=== PATIENT | female | born 1990 | race American Indian/Alaskan Native ===

== ENCOUNTER 2018-10-21 10:05 | Emergency (ER) | payer MEDICAID, OTHER ==
[2018-10-21 10:53] LABS: Hematocrit 39.1 % (30.3-42.9); Hemoglobin 13.2 gm/dl (10.1-14.3); Mean Corpuscular HGB Conc 34 % (30-34); Mean Corpuscular Volume 84 fl (79-97); Mean Platelet Volume 8.4 fl (6-12); Platelet Count 320 K/mm3 (140-440); Red Blood Count 4.63 M/mm3 (3.65-5.03); Red Cell Distribution Width 17.2 % (13.2-15.2)
[2018-10-21 10:54] LABS: Basophils % (Auto) 0.4 % (0.0-1.8); Eosinophils % (Auto) 0.1 % (0.0-4.3); Lymphocytes # (Auto) 1.7 K/mm3 (1.2-5.4); Lymphocytes % (Auto) 23.7 % (13.4-35.0); Monocytes # (Auto) 0.7 K/mm3 (0.0-0.8); Monocytes % (Auto) 9.4 % (0.0-7.3)
[2018-10-21 11:01] LABS: BUN/Creatinine Ratio 9; Blood Urea Nitrogen 9 mg/dL (7-17); Calcium 8.7 mg/dL (8.4-10.2); Hemolysis Index 47
[2018-10-21] MEDS ORDERED: TORADOL IM STA (11:04)
[2018-10-21 11:41] LABS: Bilirubin,Urine NEG (Negative); Blood,Urine NEG (Negative); Color,Urine Yellow (Yellow); Mucus,Urine FEW /HPF; Urobilinogen,Urine < 2.0 mg/dL (<2.0)
[2018-10-21 11:47] LABS: HCG Qualitative,Urine Negative (Negative)
[2018-10-21 14:45] VITALS: BP 134/88
--- NOTE | 2018-10-21 15:49 | Emergency Department Report ---
ED General Adult HPI - General Chief complaint: Neck Pain/Injury Stated complaint: NECK PAIN/CHILLS Time Seen by Provider: 10/21/18 10:56 Source: patient Mode of arrival: Ambulatory Limitations: No Limitations - History of Present Illness Initial comments: 28-year-old female since was brought complaining of itchy medical has been present for the last day and half to 2 days. States she will vocal with bilateral neck tightness and pain which is worse with lateral flexion and ex similarity range of motion. No pain with flexion or extension. She denies any headache reports no fever, chills, sweats. No nausea, vomiting, no blurred vision. No chest pain or palpitations. States that her pain is a 9 to a 10 out of 10. -: Gradual Location: neck Radiation: non-radiation Severity scale (0 -10): 9 Quality: aching, dull Consistency: constant Improves with: none Worsens with: none Associated Symptoms: denies other symptoms Treatments Prior to Arrival: none - Related Data Previous Rx's Medication Instructions Recorded Last Taken Type HYDROcodone/APAP 5-325 [[place] 1 each PO Q6HR PRN #10 tablet 10/13/13 Unknown Rx 5/325] Ketorolac [Toradol] 10 mg PO Q6H PRN #15 tablet 10/21/18 Unknown Rx methOCARBAMOL [Robaxin TAB] 750 mg PO Q8H PRN #14 tablet 10/21/18 Unknown Rx Allergies Allergy/AdvReac Type Severity Reaction Status Date / Time No Known Allergies Allergy Unverified 10/13/13 18:41 ED Review of Systems ROS: Stated complaint: NECK PAIN/CHILLS Other details as noted in HPI Comment: All other systems reviewed and negative ED Past Medical Hx - Past Medical History Previous Medical History?: No - Surgical History Past Surgical History?: No - Social History Smoking Status: Never Smoker Substance Use Type: None - Medications Home Medications: Home Medications Medication Instructions Recorded Confirmed Last Taken Type HYDROcodone/APAP 5-325 [[place] 1 each PO Q6HR PRN #10 tablet 10/13/13 Unknown Rx 5/325] Ketorolac [Toradol] 10 mg PO Q6H PRN #15 tablet 10/21/18 Unknown Rx methOCARBAMOL [Robaxin TAB] 750 mg PO Q8H PRN #14 tablet 10/21/18 Unknown Rx ED Physical Exam - General Limitations: No Limitations General appearance: alert, in no apparent distress - Head Head exam: Present: atraumatic, normocephalic - Eye Eye exam: Present: normal appearance - ENT ENT exam: Present: mucous membranes moist - Neck Neck exam: Present: full ROM. Absent: tenderness (no tenderness with palpation to the midline. No tenderness to the trapezius region with palpation. No bruits appreciated. No lymphangitis. No lymphadenopathy. Negative Spurling's test.), meningismus, lymphadenopathy, thyromegaly - Respiratory Respiratory exam: Present: normal lung sounds bilaterally. Absent: respiratory distress, wheezes, rales, rhonchi, chest wall tenderness, accessory muscle use - Cardiovascular Cardiovascular Exam: Present: regular rate, normal rhythm. Absent: systolic murmur, diastolic murmur, rubs, gallop - GI/Abdominal GI/Abdominal exam: Present: soft, normal bowel sounds - Extremities Exam Extremities exam: Present: normal inspection - Back Exam Back exam: Present: normal inspection - Neurological Exam Neurological exam: Present: alert, oriented X3 - Psychiatric Psychiatric exam: Present: normal affect, normal mood - Skin Skin exam: Present: warm, dry, intact, normal color. Absent: rash ED Course Vital Signs 10/21/18 10/21/18 10/21/18 10:12 11:12 14:38 Temperature 99.1 F 98.5 F Pulse Rate 130 H 84 Respiratory 18 17 16 Rate Blood Pressure 136/85 134/88 O2 Sat by Pulse 97 99 Oximetry ED Medical Decision Making - Lab Data Result diagrams: 10/21/18 10:22 10/21/18 10:22 - Medical Decision Making 28-year-old female with neck pain, unknown etiology, atraumatic in nature. Her laboratory data was benign and support an inflammatory infectious processes. Heart rate was initially at 1:30. She was treated with Toradol was for a heart rate down to the 80s. Plan is to have the patient to be discharged home on oral Toradol and Robaxin and will follow-up with orthopedics for further evaluation and treatment options. She isneurologically stable, and no signs of any urgent or emergent medical condition. Conditions are present at current Critical care attestation.: If time is entered above; I have spent that time in minutes in the direct care of this critically ill patient, excluding procedure time. ED Disposition Clinical Impression: Neck pain Disposition: DC-01 TO HOME OR SELFCARE Is pt being admited?: No Does the pt Need Aspirin: No Condition: Stable Instructions: Neck Exercises (GEN), Muscle Spasm (ED), Cervical Sprain (ED) Additional Instructions: Please be sure to follow with orthopedic for further violation of your neck pain which appears to be of a musculoskeletal nature. [facility] developed fever, numbness, blurred vision, worsening pain or any suggestion that her temperature symptoms. All worsen. Prescriptions: methOCARBAMOL [Robaxin TAB] 750 mg PO Q8H PRN #14 tablet PRN Reason: Pain, Moderate (4-6) Ketorolac [Toradol] 10 mg PO Q6H PRN #15 tablet PRN Reason: Pain Referrals: RIMAM OROZCO MD [Staff Physician] - 2-3 Days
== END 2018-10-21 16:02 | disposition home or self-care (01) ==
LOC: ED 10:05
DX: M54.2 Cervicalgia (principal); L29.9 Pruritus, unspecified
CPT/HCPCS: 36415; 80048; 81001; 81025; 85025; 96372; 99283; J1885

== ENCOUNTER 2019-11-22 13:34 | Observation (INO) | payer OTHER ==
--- NOTE | 2019-11-22 14:39 | Emergency Department Report ---
Blank Doc - Documentation Documentation: 29-year-old female that presents with pelvic pain and was sent to the ED after ultrasound shows baby outside the placenta. Denies any vaginal bleeding. This initial assessment/diagnostic orders/clinical plan/treatment(s) is/are subject to change based on patient's health status, clinical progression and re- assessment by fellow clinical providers in the ED. Further treatment and workup at subsequent clinical providers discretion. Patient/guardians urged not to elope from the ED as their condition may be serious if not clinically assessed and managed. Initial orders include: 1- Patient sent to [facility] for further evaluation and treatment 2- labs 3- UA 4- US OB
[2019-11-22 15:17] LABS: Basophils # (Auto) 0.1 K/mm3 (0.0-0.1); Basophils % (Auto) 0.5 % (0.0-1.8); Eosinophils # (Auto) 0.2 K/mm3 (0.0-0.4); Eosinophils % (Auto) 1.9 % (0.0-4.3); Hematocrit 32.7 % (30.3-42.9); Hemoglobin 11.4 gm/dl (10.1-14.3); Lymphocytes % (Auto) 20.9 % (13.4-35.0); Mean Corpuscular HGB Conc 35 % (30-34); Mean Corpuscular Volume 89 fl (79-97); Monocytes # (Auto) 0.5 K/mm3 (0.0-0.8); Monocytes % (Auto) 5.5 % (0.0-7.3); Platelet Count 261 K/mm3 (140-440); Red Blood Count 3.67 M/mm3 (3.65-5.03); Red Cell Distribution Width 17.1 % (13.2-15.2)
[2019-11-22 15:32] LABS: Blood Urea Nitrogen 9 mg/dL (7-17); Calcium 8.9 mg/dL (8.4-10.2); Hemolysis Index 13
[2019-11-22 15:42] LABS: BUN/Creatinine Ratio 13
--- NOTE | 2019-11-22 16:28 | Ultrasound Report ---
FIRSTTRIMESTER OBSTETRIC ULTRASOUND HISTORY: Vaginal bleeding. Positive test. COMPARISON: None. TECHNIQUE: Routine transabdominal OB ultrasound performed. FINDINGS: Uterus: Normal size and echogenicity. No uterine masses nor evidence of intrauterine gestational sac , pole or yolk sac. Endometrium: Thickened at 2.6 cm. Right Ovary: Normal size, blood flow and appearance measuring 3.1 x 2.0 x 3.5 cm cm. In the right a dnexa there is a 3.3 cm structure with internal cystic focus measuring 2.3 cm concerning for gestatio nal sac is equivalent to 6 weeks 3 days estimated gestational age. Left Ovary: Normal size, blood flow and appearance measuring 2.2 x 1.5 x 1.1 cm. Additional findings: Small amount of fluid in the posterior cul-de-sac. IMPRESSION 1. No visible intrauterine . Right adnexal cystic lesion concerning for gestational sac, as above. Findings concerning for ectopic right adnexal . Small amount of fluid in the cul-de-s ac, rupture not excluded. Recommend consultation with obstetric/gynecology surgery and further evalua tion/follow-up as warranted. CRITICAL RESULT: Time of Discovery (STARCH AND PROSIZE MIXER/CDT): 1500 Time of Communication (STARCH AND PROSIZE MIXER/CDT): 1520 Licensed Practitioner Receiving Report: Dr. Street Read-Back Performed: Yes. Signer Name: Maximus Nguyen MD Signed: 11/22/2019 4:23 PM Workstation Name: [id number]
--- NOTE | 2019-11-22 16:28 | Ultrasound Report ---
FIRSTTRIMESTER OBSTETRIC ULTRASOUND HISTORY: Vaginal bleeding. Positive test. COMPARISON: None. TECHNIQUE: Routine transabdominal OB ultrasound performed. FINDINGS: Uterus: Normal size and echogenicity. No uterine masses nor evidence of intrauterine gestational sac , pole or yolk sac. Endometrium: Thickened at 2.6 cm. Right Ovary: Normal size, blood flow and appearance measuring 3.1 x 2.0 x 3.5 cm cm. In the right a dnexa there is a 3.3 cm structure with internal cystic focus measuring 2.3 cm concerning for gestatio nal sac is equivalent to 6 weeks 3 days estimated gestational age. Left Ovary: Normal size, blood flow and appearance measuring 2.2 x 1.5 x 1.1 cm. Additional findings: Small amount of fluid in the posterior cul-de-sac. IMPRESSION 1. No visible intrauterine . Right adnexal cystic lesion concerning for gestational sac, as above. Findings concerning for ectopic right adnexal . Small amount of fluid in the cul-de-s ac, rupture not excluded. Recommend consultation with obstetric/gynecology surgery and further evalua tion/follow-up as warranted. CRITICAL RESULT: Time of Discovery (CLAY PRESS OPERATOR/CDT): 1500 Time of Communication (CLAY PRESS OPERATOR/CDT): 1520 Licensed Practitioner Receiving Report: Dr. Street Read-Back Performed: Yes. Signer Name: Maximus Nguyen MD Signed: 11/22/2019 4:23 PM Workstation Name: [id number]
--- NOTE | 2019-11-22 17:16 | Emergency Department Report ---
ED General Adult HPI - General Chief complaint: Abdominal Pain Stated complaint: POSS ECTOPIC Time Seen by Provider: 11/22/19 14:36 Source: patient Mode of arrival: Ambulatory Limitations: No Limitations - History of Present Illness Initial comments: The patient presents to the emergency department after being evaluated [facility]. Patient states she went to the clinic today and had confirmation of and she was told by ultrasound that she had an ectopic . Patient states is her second and the first 1 ended with a miscarriage. Patient denies any pain but does endorse having some spotting. Patient denies any vaginal discharge. -: Sudden Severity scale (0 -10): 0 Consistency: constant Improves with: none Worsens with: none Associated Symptoms: denies other symptoms Treatments Prior to Arrival: none - Related Data Previous Rx's Medication Instructions Recorded Last Taken Type HYDROcodone/APAP 5-325 [[place] 1 each PO Q6HR PRN #10 tablet 10/13/13 Unknown Rx 5/325] Ketorolac [Toradol] 10 mg PO Q6H PRN #15 tablet 10/21/18 Unknown Rx methOCARBAMOL [Robaxin TAB] 750 mg PO Q8H PRN #14 tablet 10/21/18 Unknown Rx Allergies Allergy/AdvReac Type Severity Reaction Status Date / Time No Known Allergies Allergy Unverified 10/13/13 18:41 ED Review of Systems ROS: Stated complaint: POSS ECTOPIC Other details as noted in HPI Comment: All other systems reviewed and negative Constitutional: denies: chills, fever Eyes: denies: eye pain, eye discharge, vision change ENT: denies: ear pain, throat pain Respiratory: denies: cough, shortness of breath, wheezing Cardiovascular: denies: chest pain, palpitations Endocrine: no symptoms reported Gastrointestinal: denies: abdominal pain, nausea, diarrhea Genitourinary: denies: urgency, dysuria, discharge Musculoskeletal: denies: back pain, joint swelling, arthralgia Skin: denies: rash, lesions Neurological: denies: headache, weakness, paresthesias Psychiatric: denies: anxiety, depression Hematological/Lymphatic: denies: easy bleeding, easy bruising ED Past Medical Hx - Past Medical History Previous Medical History?: No - Surgical History Past Surgical History?: No - Social History Smoking Status: Never Smoker - Medications Home Medications: Home Medications Medication Instructions Recorded Confirmed Last Taken Type HYDROcodone/APAP 5-325 [[place] 1 each PO Q6HR PRN #10 tablet 10/13/13 Unknown Rx 5/325] Ketorolac [Toradol] 10 mg PO Q6H PRN #15 tablet 10/21/18 Unknown Rx methOCARBAMOL [Robaxin TAB] 750 mg PO Q8H PRN #14 tablet 10/21/18 Unknown Rx ED Physical Exam - General Limitations: No Limitations General appearance: alert, in no apparent distress - Head Head exam: Present: atraumatic, normocephalic - Eye Eye exam: Present: normal appearance, PERRL, EOMI - ENT ENT exam: Present: mucous membranes moist - Neck Neck exam: Present: normal inspection - Respiratory Respiratory exam: Present: normal lung sounds bilaterally. Absent: respiratory distress - Cardiovascular Cardiovascular Exam: Present: regular rate, normal rhythm. Absent: systolic murmur, diastolic murmur, rubs, gallop - GI/Abdominal GI/Abdominal exam: Present: soft, normal bowel sounds. Absent: distended, tenderness - Rectal Rectal exam: Present: deferred - External exam: Present: other (Deferred) Speculum exam: Present: other (Deferred) Bi-manual exam: Present: other (Deferred) - Extremities Exam Extremities exam: Present: normal inspection - Back Exam Back exam: Present: normal inspection - Neurological Exam Neurological exam: Present: alert, oriented X3, CN II-XII intact. Absent: motor sensory deficit - Psychiatric Psychiatric exam: Present: normal affect, normal mood - Skin Skin exam: Present: warm, dry, intact, normal color. Absent: rash ED Course Vital Signs 11/22/19 11/22/19 11/22/19 14:32 16:45 16:49 Temperature 98.8 F 98.2 F Pulse Rate 99 H 85 100 H Respiratory 22 18 Rate Blood Pressure 145/93 136/81 136/81 Blood Pressure 136/81 [Right] O2 Sat by Pulse 100 100 Oximetry 11/22/19 11/22/19 11/22/19 17:00 17:15 17:30 Temperature Pulse Rate 81 91 H 81 Respiratory 20 14 19 Rate Blood Pressure 135/78 135/78 129/79 Blood Pressure [Right] O2 Sat by Pulse 100 100 100 Oximetry 11/22/19 11/22/19 11/22/19 17:45 18:00 18:15 Temperature Pulse Rate 86 79 Respiratory 22 19 19 Rate Blood Pressure 129/79 131/77 131/77 Blood Pressure [Right] O2 Sat by Pulse 100 99 100 Oximetry 11/22/19 11/22/19 11/22/19 18:30 18:45 19:00 Temperature Pulse Rate 79 82 Respiratory 20 17 15 Rate Blood Pressure 116/71 116/71 127/64 Blood Pressure [Right] O2 Sat by Pulse 100 100 100 Oximetry 11/22/19 11/22/19 11/22/19 19:15 19:30 19:45 Temperature Pulse Rate 75 137 H 83 Respiratory 19 19 12 Rate Blood Pressure 127/64 117/69 117/69 Blood Pressure [Right] O2 Sat by Pulse 100 100 100 Oximetry 11/22/19 11/22/19 11/22/19 20:01 20:15 20:30 Temperature Pulse Rate 86 69 Respiratory 16 19 20 Rate Blood Pressure 144/125 144/125 126/79 Blood Pressure [Right] O2 Sat by Pulse 98 100 100 Oximetry 11/22/19 11/22/19 11/22/19 20:45 21:00 21:15 Temperature Pulse Rate 116 H 89 Respiratory 14 26 H 20 Rate Blood Pressure 126/79 126/77 126/77 Blood Pressure [Right] O2 Sat by Pulse 100 98 100 Oximetry ED Medical Decision Making - Lab Data Result diagrams: 11/22/19 14:52 11/22/19 14:52 Lab Results 11/22/19 11/22/19 11/22/19 Range/Units 14:52 14:52 14:52 WBC 9.3 (4.5-11.0) K/mm3 RBC 3.67 (3.65-5.03) M/mm3 Hgb 11.4 (10.1-14.3) gm/dl Hct 32.7 (30.3-42.9) % MCV 89 (79-97) fl MCH 31 (28-32) pg MCHC 35 H (30-34) % RDW 17.1 H (13.2-15.2) % Plt Count 261 (140-440) K/mm3 Lymph % (Auto) 20.9 (13.4-35.0) % [place] % (Auto) 5.5 (0.0-7.3) % Eos % (Auto) 1.9 (0.0-4.3) % Baso % (Auto) 0.5 (0.0-1.8) % Lymph # (Auto) 2.0 (1.2-5.4) K/mm3 [place] # (Auto) 0.5 (0.0-0.8) K/mm3 Eos # (Auto) 0.2 (0.0-0.4) K/mm3 Baso # (Auto) 0.1 (0.0-0.1) K/mm3 Seg Neutrophils % 71.2 H (40.0-70.0) % Seg Neutrophils # 6.6 (1.8-7.7) K/mm3 Sodium 136 L (137-145) mmol/L Potassium 3.6 (3.6-5.0) mmol/L Chloride 102.8 (98-107) mmol/L Carbon Dioxide 18 L (22-30) mmol/L Anion Gap 19 mmol/L BUN 9 (7-17) mg/dL Creatinine 0.7 (0.6-1.2) mg/dL Estimated GFR > 60 ml/min BUN/Creatinine Ratio 13 % Glucose 97 (65-100) mg/dL Calcium 8.9 (8.4-10.2) mg/dL HCG, Quant 7972 H (0-4) mIU/mL Urine Color (Yellow) Urine Turbidity (Clear) Urine pH (5.0-7.0) Ur Specific [place] (1.003-1.030) Urine Protein (Negative) mg/dL Urine Glucose (UA) (Negative) mg/dL Urine Ketones (Negative) mg/dL Urine Blood (Negative) Urine Nitrite (Negative) Urine Bilirubin (Negative) Urine Urobilinogen (<2.0) mg/dL Ur Leukocyte Esterase (Negative) Urine WBC (Auto) (0.0-6.0) /HPF Urine RBC (Auto) (0.0-6.0) /HPF U Epithel Cells (Auto) (0-13.0) /HPF Urine Bacteria (Auto) (Negative) /HPF Urine Mucus /HPF 11/22/19 Range/Units 16:58 WBC (4.5-11.0) K/mm3 RBC (3.65-5.03) M/mm3 Hgb (10.1-14.3) gm/dl Hct (30.3-42.9) % MCV (79-97) fl MCH (28-32) pg MCHC (30-34) % RDW (13.2-15.2) % Plt Count (140-440) K/mm3 Lymph % (Auto) (13.4-35.0) % [place] % (Auto) (0.0-7.3) % Eos % (Auto) (0.0-4.3) % Baso % (Auto) (0.0-1.8) % Lymph # (Auto) (1.2-5.4) K/mm3 [place] # (Auto) (0.0-0.8) K/mm3 Eos # (Auto) (0.0-0.4) K/mm3 Baso # (Auto) (0.0-0.1) K/mm3 Seg Neutrophils % (40.0-70.0) % Seg Neutrophils # (1.8-7.7) K/mm3 Sodium (137-145) mmol/L Potassium (3.6-5.0) mmol/L Chloride (98-107) mmol/L Carbon Dioxide (22-30) mmol/L Anion Gap mmol/L BUN (7-17) mg/dL Creatinine (0.6-1.2) mg/dL Estimated GFR ml/min BUN/Creatinine Ratio % Glucose (65-100) mg/dL Calcium (8.4-10.2) mg/dL HCG, Quant (0-4) mIU/mL Urine Color Yellow (Yellow) Urine Turbidity Clear (Clear) Urine pH 5.0 (5.0-7.0) Ur Specific [place] 1.013 (1.003-1.030) Urine Protein <15 mg/dl (Negative) mg/dL Urine Glucose (UA) Neg (Negative) mg/dL Urine Ketones Neg (Negative) mg/dL Urine Blood Neg (Negative) Urine Nitrite Neg (Negative) Urine Bilirubin Neg (Negative) Urine Urobilinogen < 2.0 (<2.0) mg/dL Ur Leukocyte Esterase Mod (Negative) Urine WBC (Auto) 4.0 (0.0-6.0) /HPF Urine RBC (Auto) 1.0 (0.0-6.0) /HPF U Epithel Cells (Auto) 1.0 (0-13.0) /HPF Urine Bacteria (Auto) 1+ (Negative) /HPF Urine Mucus Few /HPF - Radiology Data Radiology results: report reviewed - Medical Decision Making Initial phone call went out to PATTERN LEASE INSPECTOR at [phone] with a return call at 1830 at that time with an respiratory distress. EXERCISE MANAGER return phone call possibly 15 min utes later and at that time I was in a cardiac arrest. Spoke with the on-call OB assistant project engineer who agreed to see the patient Critical care attestation.: If time is entered above; I have spent that time in minutes in the direct care of this critically ill patient, excluding procedure time. ED Disposition Clinical Impression: Ectopic of right ovary Disposition: DC-09 OP ADMIT IP TO THIS HOSP Is pt being admited?: Yes Does the pt Need Aspirin: No Condition: Stable
[2019-11-22 17:19] LABS: Bacteria,Urine 1+ /HPF (Negative); Bilirubin,Urine NEG (Negative); Blood,Urine NEG (Negative); Color,Urine Yellow (Yellow); Mucus,Urine FEW /HPF; Protein,Urine <15 mg/dL mg/dL (Negative); Urobilinogen,Urine < 2.0 mg/dL (<2.0)
--- NOTE | 2019-11-22 20:38 | History and Physical Report ---
History of Present Illness Date of examination: 11/22/19 Date of admission: 11/22/2019 Chief complaint: ectopic History of present illness: Pt seen at outside facility to confirm and was noted to have right ectopic . She was sent to ED for evaluation. Pt ectopic was confirmed in ED via sono showing GS measuring about 6 weeks minimal fluid noted in culdac. No pole or cardiac activity noted. Pt states she has not n/v/f/c or any pe lvic pain at this time. She also denies vaginal bleeding. I d/w surgical vs medial treatment of the ectopic. She desires medical therapy at this time. I d/w that if at any point she has pain or become unstable this could mean rupture of the ectopic and need for surgery. She expressed understanding. All questions were addressed and answered. 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 Family/Genetic History: none - Obstetrical History : 2 Spontaneous Abortions: 1 Medications and Allergies Allergies Allergy/AdvReac Type Severity Reaction Status Date / Time No Known Allergies Allergy Unverified 10/13/13 18:41 Home Medications Medication Instructions Recorded Confirmed Last Taken Type HYDROcodone/APAP 5-325 [[place] 1 each PO Q6HR PRN #10 tablet 10/13/13 Unknown Rx 5/325] Ketorolac [Toradol] 10 mg PO Q6H PRN #15 tablet 10/21/18 Unknown Rx methOCARBAMOL [Robaxin TAB] 750 mg PO Q8H PRN #14 tablet 10/21/18 Unknown Rx Review of Systems All systems: negative - Vital Signs Vital signs: Vital Signs Temp Pulse Resp BP Pulse Ox 98.8 F 99 H 22 145/93 100 11/22/19 14:32 11/22/19 14:32 11/22/19 14:32 11/22/19 14:32 11/22/19 14:32 Temp Pulse Resp BP Pulse Ox 98.2 F 81 20 135/78 100 11/22/19 16:45 11/22/19 17:00 11/22/19 17:00 11/22/19 17:00 11/22/19 17:00 - Physical Exam Cardiovascular: Normal S1, Normal S2 Lungs: Positive: Normal air movement Abdomen: Positive: normal appearance, soft. Negative: distention, tenderness, guarding Genitourinary (Female): Positive: other (deferred as pt not having pain or vaginal bleeding.) Deep Tendon Reflex Grade: Normal +2 Results Result Diagrams: 11/22/19 14:52 11/22/19 14:52 Abnormal lab results 11/22/19 11/22/19 11/22/19 Range/Units 14:52 14:52 14:52 MCHC 35 H (30-34) % RDW 17.1 H (13.2-15.2) % Seg Neutrophils % 71.2 H (40.0-70.0) % Sodium 136 L (137-145) mmol/L Carbon Dioxide 18 L (22-30) mmol/L HCG, Quant 7972 H (0-4) mIU/mL All other labs normal. Assessment and Plan - Patient Problems (1) Ectopic Current Visit: Yes Status: Acute Qualifiers: Location of ectopic : tubal Laterality: right Plan to address problem: -admit -Methotrexate injection -monitor closely -d/c home tomorrow if remains stable with close outpt follow up -all questions were addressed and answered. Pt expressed understanding and agrees with plan of care.
[2019-11-22] MEDS ORDERED: ACETAMINOPHEN 325 MG TAB PO PRN (20:40)
[2019-11-22] MEDS ORDERED: ONDANSETRON 4 MG/2 ML INJ IV PRN (20:40)
[2019-11-22 21:33] LABS: Alanine Aminotransferase 9 units/L (7-56); Albumin 4.3 g/dL (3.9-5); Blood Urea Nitrogen 8 mg/dL (7-17); Hemolysis Index 9
[2019-11-22 21:50] LABS: BUN/Creatinine Ratio 11
--- NOTE | 2019-11-23 08:57 | Short Stay Summary ---
Short Stay Documentation Date of service: 11/23/19 - History Past Medical History: other (See Dr. Dickens history and physical) - Allergies and Medications Current Medications: Allergies No Known Allergies Allergy (Unverified 10/13/13 18:41) Home Medications Medication Instructions Recorded Confirmed Last Taken Type HYDROcodone/APAP 5-325 [[place] 1 each PO Q6HR PRN #10 tablet 10/13/13 Unknown Rx 5/325] Ketorolac [Toradol] 10 mg PO Q6H PRN #15 tablet 10/21/18 Unknown Rx methOCARBAMOL [Robaxin TAB] 750 mg PO Q8H PRN #14 tablet 10/21/18 Unknown Rx Ibuprofen [Motrin 800 MG tab] 800 mg PO Q6H PRN #30 tablet 11/23/19 Unknown Rx Active Medications Acetaminophen (Tylenol) 650 mg PO Q4H PRN PRN Reason: Pain MILD(1-3)/Fever >100.5/TORRES Ondansetron HCl (Zofran) 4 mg IV Q8H PRN PRN Reason: Nausea And Vomiting Sodium Chloride (Sodium Chloride Flush Syringe 10 Ml) 10 ml IV BID LUCHO Sodium Chloride (Sodium Chloride Flush Syringe 10 Ml) 10 ml IV PRN PRN PRN Reason: LINE FLUSH - Physical exam General appearance: no acute distress HEENT: Atraumatic Lungs: Normal air movement Breasts: deferred Heart: Regular rate Gastrointestinal: normal, no tenderness, no distended, no guarding, obese Female Genitourinary: deferred Rectal Exam: deferred Extremities: no ischemia Neurological: Normal speech - Hospital course Hospital course: See H&P P for details. Patient was admitted with a diagnosis of ectopic . Patient underwent treatment methotrexate. On observation patient had no abnormal reaction to the medication. Patient exam is normal with no complaints of pain or vaginal bleeding at this time. Vital signs are stable she is afebrile. Patient's been discharged with follow-up in our office on Wednesday, November 26 - Disposition Condition at discharge: Stable Disposition: - TO HOME OR SELFCARE - Discharge Diagnoses (1) Ectopic Status: Acute Qualifiers: Location of ectopic : tubal Laterality: right Short Stay Discharge Plan Activity: no restrictions Diet: regular Additional Instructions: Patient office for fever chills nausea, vomiting or pain uncontrolled by pain relief. Patient instructed no sex . Follow up with: PRIMARY CARE, [Primary Care Provider] - 3-5 Days Prescriptions: Ibuprofen [Motrin 800 MG tab] 800 mg PO Q6H PRN #30 tablet PRN Reason: Pain
[2019-11-23 09:22] VITALS: BP 105/54
== END 2019-11-23 10:45 | disposition home or self-care (01) ==
LOC: ED 13:34 → OB 20:43
PROVIDERS: ADMIT Obstetrics & Gynecology; ATTEND Obstetrics & Gynecology
DX: O00.201 Right ovarian pregnancy without intrauterine pregnancy (principal); Z3A.01 Less than 8 weeks gestation of pregnancy
CPT/HCPCS: 36415; 76801; 76817; 80053; 81001; 84702; 85025; 86850; 86900; 86901; 96372; 99284; G0378; J9260; 80048